=== PATIENT | male | born 1975 | race Caucasian/White ===

== ENCOUNTER 2016-07-25 02:10 | Emergency (ER) | payer OTHER ==
[~2016-07-25 02:10] MED LIST: AMOXICILLIN PO; CLEOCIN150 MG PO; EMBREL; HUMIRA20 MG/0.1; PEN-VEE K PO; ZYRTEC
== END 2016-07-25 02:18 | disposition home or self-care (01) ==
LOC: SED 02:10
DX: M54.16 Radiculopathy, lumbar region (principal); Z88.8 Allergy status to other drugs, medicaments and biological substances
CPT/HCPCS: 99282

== ENCOUNTER 2016-07-25 07:46 | Emergency (ER) | payer BC ==
--- NOTE | ~2016-07-25 | CR181 ---
[facility]. [facility] A Service of [facility] & [facility] RADIOLOGY TEXT RESULTS PATIENT: PLACIDO BUNN LOCATION: SED : [birth year] UNIT #: [id number] AGE: [address]: Tyler Hall MD SEX: M ORDER DR: [id number] [place] [id number] E MR#: [id number] Acc #: [id number] NAME: PLACIDO BUNN : 1975 SEX: M STUDY DATE/TIME: 07/25/2016 8:36 UNIT: SED ROOM: STUDY DESCRIPTION: CR Lumbar Spine 2 or 3 Views Attending Physician: Tyler Hall M.D. Ordering Physician: Tyler Hall M.D. Primary Care Physician: Primary Care Physician No MEDICAL IMAGING REPORT This report is preliminary unless electronic signature is present. EXAM Lumbar spine three-view series INDICATION Low back pain since yesterday morning. FINDINGS 3 views of the lumbar spine were obtained. There is mild disc space narrowing throughout the upper lumbar spine. There is no fracture or subluxation. The L5-S1 disc space is very narrowed. IMPRESSION Disc space narrowing at T12-L1, L1-2, L2-3 and L5-S1. There is no fracture or subluxation. Dictated by... Jacek English M.D. THIS IS AN ELECTRONICALLY VERIFIED REPORT Jacek English M.D. at 07/25/2016 12:02 PM CELIA/javier TD: 07/25/2016 09:49 JOB #: [id number] MEDICAL IMAGING REPORT Page 1 of 1
== END 2016-07-25 09:30 | disposition home or self-care (01) ==
LOC: SED 07:46
DX: S33.9XXA Sprain of unspecified parts of lumbar spine and pelvis, initial encounter (principal); K21.9 Gastro-esophageal reflux disease without esophagitis; F17.200 Nicotine dependence, unspecified, uncomplicated; L40.9 Psoriasis, unspecified; Z88.8 Allergy status to other drugs, medicaments and biological substances; X58.XXXA Exposure to other specified factors, initial encounter; Y92.9 Unspecified place or not applicable
CPT/HCPCS: 72100; 96372; 99283; J0780; J1200